=== PATIENT | female | born 1955 | race Caucasian/White ===

== ENCOUNTER → 2022-02-04 | Outpatient (CLI) | payer BC, MEDICARE ==
[~2022-02-04] MED LIST: BEBTELOVIMAB (EUA) 175 MG/2 ML VIAL IV NR; SODIUM CHLORIDE 0.9% 500 ML 500 ML in EMPTY BAG 1 BAG IV PRN
[2022-02-04 13:29] VITALS: TEMP 98.6
[2022-02-04 14:09] VITALS: BP 111/70; PULSE 75; RESP 16
== END ==
LOC: PROCWHC3 13:01
PROVIDERS: ATTEND Family Medicine
DX: U07.1 COVID-19 (principal); Z88.5 Allergy status to narcotic agent
CPT/HCPCS: 96374; Q0222; M0222